=== PATIENT | female | born 1980 | race Caucasian/White ===

== ENCOUNTER → 2018-07-04 | Outpatient (CLI) | payer OTHER | LOC: FIMAGING 09:50 | PROVIDERS: ATTEND Obstetrics & Gynecology | DX: O09.511 Supervision of elderly primigravida, first trimester (principal); O36.8910 Maternal care for other specified fetal problems, first trimester, not applicable or unspecified; O09.811 Supervision of pregnancy resulting from assisted reproductive technology, first trimester; Z3A.14 14 weeks gestation of pregnancy ==

== ENCOUNTER → 2018-08-08 | Outpatient (CLI) | payer OTHER | LOC: FIMAGING 13:21 | PROVIDERS: ATTEND Obstetrics & Gynecology | DX: O44.02 Complete placenta previa NOS or without hemorrhage, second trimester (principal); O28.5 Abnormal chromosomal and genetic finding on antenatal screening of mother; O09.512 Supervision of elderly primigravida, second trimester; O09.812 Supervision of pregnancy resulting from assisted reproductive technology, second trimester; Z3A.19 19 weeks gestation of pregnancy ==

== ENCOUNTER → 2018-09-08 | Outpatient (CLI) | payer MEDICAID | LOC: FIMAGING 10:01 | PROVIDERS: ATTEND Obstetrics & Gynecology | DX: O09.812 Supervision of pregnancy resulting from assisted reproductive technology, second trimester (principal); O09.512 Supervision of elderly primigravida, second trimester; O44.02 Complete placenta previa NOS or without hemorrhage, second trimester; Z3A.24 24 weeks gestation of pregnancy ==

== ENCOUNTER → 2018-10-18 | Outpatient (CLI) | payer MEDICAID, OTHER | LOC: FIMAGING 12:52 | PROVIDERS: ATTEND Obstetrics & Gynecology | DX: O09.513 Supervision of elderly primigravida, third trimester (principal); O44.02 Complete placenta previa NOS or without hemorrhage, second trimester; O24.410 Gestational diabetes mellitus in pregnancy, diet controlled; O09.813 Supervision of pregnancy resulting from assisted reproductive technology, third trimester; Z3A.30 30 weeks gestation of pregnancy ==

== ENCOUNTER → 2018-11-28 | Outpatient (CLI) | payer MEDICAID | LOC: FIMAGING 08:52 ==